=== PATIENT | male | born 2000 | race Two or more races ===

== ENCOUNTER 2025-03-13 05:36 | Emergency (ER) | payer MEDICAID, OTHER ==
[~2025-03-13] VITALS: Ht 180.3 cm; Wt 77.3 kg
[2025-03-13] MEDS: ceFAZolin 2 GM/D5W50ml 50 ML IV ONE (05:52)
[2025-03-13] MEDS ORDERED: IOHEXOL 300 MG/ML 100ML BOTTLE IJ ONE (05:57)
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
[2025-03-13] MEDS: TETANUS-DIPTH-ACEL PERTUSSIS 0.5ML SYR Tdap IM ONE (06:07)
[2025-03-13 06:19] VITALS: PULSE 91; RESP 22; O2SAT 97
[2025-03-13 06:23] LABS: Chloride 107 mmol/L (98-107); Potassium 3.9 mmol/L (3.5-5.1); Sodium 142 mmol/L (136-145)
[2025-03-13 06:24] LABS: Anion Gap 14 (5-15); Calcium 9.3 mg/dL (8.7-10.4); Carbon Dioxide 21 mmol/L (20-31)
[2025-03-13 06:29] LABS: BUN/Creatinine Ratio 11.6 (10.0-20.0); Blood Urea Nitrogen 10 mg/dL (9-23); Lipase 36 U/L (12-53)
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
[2025-03-13 06:33] LABS: Glucose 121 mg/dL (74-106)
[2025-03-13 06:38] LABS: INR 0.97 (0.9-1.15); Partial Thromboplastin Time 21.4 SEC (24.5-34.5); Prothrombin Time 10.3 sec (9.3-11.8)
[2025-03-13 06:53] LABS: Hematocrit 45.7 % (41.0-53.0); Hemoglobin 15.9 g/dL (13.5-17.5); Mean Corpuscular Hemoglobin 32.7 pg (28.0-32.0); Mean Corpuscular Volume 94.1 fL (80.0-100.0); Nucleated Red Blood Cells % 0.1 %
[2025-03-13 07:15] VITALS: BP 135/82; PULSE 88; RESP 12; TEMP 97.9; O2SAT 96
== END 2025-03-13 07:15 | disposition short-term general hospital (02) ==
LOC: ER 05:36
DX: S01.81XA Laceration without foreign body of other part of head, initial encounter (principal); S41.011A Laceration without foreign body of right shoulder, initial encounter; S21.211A Laceration without foreign body of right back wall of thorax without penetration into thoracic cavity, initial encounter; S31.119A Laceration without foreign body of abdominal wall, unspecified quadrant without penetration into peritoneal cavity, initial encounter; S61.511A Laceration without foreign body of right wrist, initial encounter; Y08.89XA Assault by other specified means, initial encounter; Y93.89 Activity, other specified; Y92.89 Other specified places as the place of occurrence of the external cause; Y99.8 Other external cause status
CPT/HCPCS: 36415; 71045; 80048; 83690; 85025; 85610; 85730; 90471; 90715; 96365; 99291; J0690